=== PATIENT | male | born 1965 | race Hispanic/Latino ===

== ENCOUNTER 2018-03-16 07:51 | Day surgery (SDC) | payer BC ==
[2018-03-16 08:06] VITALS: BMI 26.4
[2018-03-16] MEDS ORDERED: Lactated Ringer's 500 ML IV ONE (08:09)
[2018-03-16 08:21] VITALS: TEMP 97.6
[2018-03-16] MEDS ORDERED: Midazolam 2 MG/2 ML VIAL ONE (08:45)
[2018-03-16] MEDS ORDERED: Propofol 10 mg/ml Inj (20 ML) ONE (08:45)
[2018-03-16 09:34] VITALS: BP 120/68; PULSE 70; RESP 14; O2SAT 98
== END 2018-03-16 13:37 | disposition home or self-care (01) ==
LOC: H.ENDO 07:51
PROVIDERS: ATTEND Internal Medicine Gastroenterology
DX: Z12.11 Encounter for screening for malignant neoplasm of colon (principal); E78.5 Hyperlipidemia, unspecified; Z88.0 Allergy status to penicillin; K64.0 First degree hemorrhoids; D12.3 Benign neoplasm of transverse colon
CPT/HCPCS: 45380; 88305; J2001; J2250; J2704; J7120